=== PATIENT | male | born 1950 | race Caucasian/White ===

== ENCOUNTER → 2023-03-18 09:51 | Outpatient (BNVA) | payer MEDICARE, OTHER, SELFPAY | PROVIDERS: PCP Nurse Practitioner Family; Visit Provider Nurse Practitioner Family | DX: E55.9 Vitamin D deficiency, unspecified (principal); Z79.899 Other long term (current) drug therapy; Z12.5 Encounter for screening for malignant neoplasm of prostate; Z13.6 Encounter for screening for cardiovascular disorders; R53.83 Other fatigue; D64.9 Anemia, unspecified; I49.9 Cardiac arrhythmia, unspecified | CPT/HCPCS: 80053; 80061; 81003; 82306; 82607; 82746; 83036; 83550; 84443; 85025; G0103 ==